=== PATIENT | male | born 2000 | race African-American/Black ===

== ENCOUNTER → 2019-02-25 | Emergency (ER) | payer OTHER ==
[~2019-02-25] VITALS: Ht 172.7 cm; Wt 56.2 kg
[~2019-02-25] MED LIST: CEFUROXIME500 MG PO; URIN D.S. TABL1 EACH PO
== END | disposition home or self-care (01) ==
LOC: ER 22:34
DX: N34.2 Other urethritis (principal)

== ENCOUNTER 2021-06-09 13:57 | Emergency (ER) | payer OTHER ==
[~2021-06-09] VITALS: Ht 167.6 cm; Wt 63.5 kg
[2021-06-09] MEDS ORDERED: CIPRO500 MG PO (20:21)
== END 2021-06-09 21:30 | disposition home or self-care (01) ==
LOC: ER 13:57
DX: R30.0 Dysuria (principal)